=== PATIENT | female | born 2000 | race Caucasian/White ===

== ENCOUNTER → 2019-07-08 | Outpatient (CLI) | payer MEDICAID, BC ==
[2019-07-08 13:58] LABS: Basophils % (A) 0 %; Eosinophils # (A) 0.3 k/uL (0-0.7); Eosinophils % (A) 4 %; HGB 13.2 gm/dL (11.4-16.0); Lymphocytes # (A) 1.7 k/uL (1.0-4.8); Lymphocytes % (A) 18 %; MCV 87.8 fL (80.0-100.0); Mean Platelet Volume 5.9; Monocytes # (A) 0.4 k/uL (0-1.0); Monocytes % (A) 4 %; Neutrophils # (A) 6.5 k/uL (1.3-7.7); Neutrophils % (A) 71 %; Platelet Count 344 k/uL (150-450); RBC 4.55 m/uL (3.80-5.40); RDW 12.7 % (11.5-15.5); WBC 9.3 k/uL (4.0-11.0)
[2019-07-08 18:51] LABS: African American GFR (CKD) 144.6 (60.0-200.0); Albumin 4.4 g/dL (3.80-4.90); Albumin/Globulin Ratio 2.44 (1.60-3.17); Anion Gap 8.7 mmol/L (4.00-12.00); BUN/Creat Ratio 11.43 Ratio (12.00-20.00); Calcium 8.8 mg/dL (8.7-10.3); Carbon Dioxide 27.3 mmol/L (21.6-31.8); Globulin 1.8 g/dL (1.6-3.3); Potassium 3.9 mmol/L (3.5-5.5); Total Bilirubin 0.3 mg/dL (0.3-1.2); Total Protein 6.2 g/dL (6.2-8.2)
[2019-07-08 21:02] LABS: EBV-EA (IgG) <0.2 AI; EBV-EBNA(IgG) <0.2 AI; EBV-VCA (IgG) <0.2 AI; EBV-VCA (IgM) <0.2 AI
== END | disposition home or self-care (01) ==
LOC: LABWHC1 12:43
PROVIDERS: ATTEND Nurse Practitioner Family
DX: J02.9 Acute pharyngitis, unspecified (principal)
CPT/HCPCS: 36415; 80053; 85025; 86308; 86644; 86645; 86663; 86664; 86665

== ENCOUNTER → 2019-08-19 | Outpatient (CLI) | payer MEDICAID, BC ==
--- NOTE | 2019-08-21 16:13 | MR ---
EXAMINATION TYPE: MR ankle RT wo con DATE OF EXAM: 08/19/2019 COMPARISON: None. HISTORY: Rt ankle pain anteriorly and strain injury March. Standard multiplanar, multisequence MRI departmental protocol Multiplanar, multisequence images of the right ankle were acquired. FINDINGS: Distal Achilles tendon intact and thought within normal limits . Plantar fascia is unremark able. No significant calcaneal spurring. Peroneus tendons along the posterior lateral aspect are intact. Flexor tendons Posterior medial aspec t are intact. Extensor tendons anteriorly are intact. The anterior tibiofibular and the anterior talofibular ligaments are intact.. Medial deltoid ligament is intact. Ankle mortise symmetry is preserved. Normal sinus tarsi fat. Small tibiotalar joint effusion presumed physiologic. Bone marrow signal intensity is maintained. Hindfoot and midfoot articulations are thought within nor mal limits. IMPRESSION: No ligamentous or tendon tear. Fairly unremarkable study.
== END | disposition home or self-care (01) ==
LOC: RADMRIMAIN 19:28
PROVIDERS: ATTEND Orthopaedic Surgery
DX: S86.911D Strain of unspecified muscle(s) and tendon(s) at lower leg level, right leg, subsequent encounter (principal); M79.661 Pain in right lower leg; M25.571 Pain in right ankle and joints of right foot

== ENCOUNTER → 2021-11-29 | Outpatient (CLI) | payer MEDICAID, BC ==
[2021-11-29 23:50] LABS: % Iron Saturation 21.86 (12.00-45.00); African American GFR (CKD) 140.6 (60.0-200.0); Albumin 4.5 g/dL (3.8-4.9); Albumin/Globulin Ratio 1.68 (1.60-3.17); Anion Gap 12.4 mmol/L (10.00-18.00); BUN/Creat Ratio 16.81 Ratio (12.00-20.00); Basophils # (A) 0.06 X 10*3/uL (0.00-0.10); Basophils % (A) 0.8 %; Blood Urea Nitrogen 11.9 mg/dL (9.0-27.0); Calcium 9.2 mg/dL (8.7-10.3); Carbon Dioxide 20.8 mmol/L (20.0-27.5); Eosinophils # (A) 0.24 X 10*3/uL (0.04-0.35); Eosinophils % (A) 3.3 %; Globulin 2.7 g/dL (1.6-3.3); HCT 42.9 % (37.2-46.3); HGB 13.1 g/dL (12.0-15.0); Immature Grans, Automated 0.1 %; Lymphocytes # (A) 1.79 X 10*3/uL (0.90-5.00); Lymphocytes % (A) 24.6 %; MCHC 30.5 g/dL (32.0-37.0); MCV 88.3 fL (80.0-97.0); Mean Platelet Volume 10.6 fL (9.5-12.2); Monocytes # (A) 0.48 X 10*3/uL (0.20-1.00); Monocytes % (A) 6.6 %; NRBC Per 100 WBC 0 /100 WBCS (0.0-0.0); Neutrophils % (A) 64.6 %; Non-African American GFR(CKD) 121.3 (60.0-200.0); Platelet Count 341 X 10*3/uL (140-440); Potassium 3.7 mmol/L (3.5-5.5); RBC 4.86 X 10*6/uL (4.10-5.20); T4, Free (Free Thyroxine) 1.1 ng/dL (0.800-1.800); Total Bilirubin 0.3 mg/dL (0.30-1.20); Total Protein 7.2 g/dL (6.2-8.2); WBC 7.28 X 10*3/uL (4.50-10.00)
[2021-11-30 04:05] LABS: EBV-EA (IgG) <0.2 AI; EBV-EBNA(IgG) <0.2 AI; EBV-VCA (IgG) <0.2 AI; EBV-VCA (IgM) <0.2 AI
== END | disposition home or self-care (01) ==
LOC: LABWHC1 13:28
PROVIDERS: ATTEND Nurse Practitioner Family
DX: J02.9 Acute pharyngitis, unspecified (principal); D64.9 Anemia, unspecified; R73.9 Hyperglycemia, unspecified; R53.83 Other fatigue; E55.9 Vitamin D deficiency, unspecified
CPT/HCPCS: 36415; 80053; 82306; 82607; 82746; 83036; 83540; 83550; 84439; 84443; 85025; 86308; 86663; 86664; 86665

== ENCOUNTER 2022-02-12 10:54 | Emergency (ER) | payer MEDICAID, BC ==
[2022-02-12 11:00] VITALS: BP 107/67; PULSE 91; RESP 16; TEMP 98
[2022-02-12] MEDS ORDERED: KETOROLAC 15 MG/ML 1 ML VIAL IVP STA ×2 (11:11→12:37)
[2022-02-12] MEDS ORDERED: DIAZEPAM 5 MG/ML 2 ML INJ IVP STA (11:11)
--- NOTE | 2022-02-12 11:54 | XR ---
EXAMINATION TYPE: XR chest 2V DATE OF EXAM: 02/12/2022 COMPARISON: Chest x-ray December 26, 2011 HISTORY: Chest and back pain. TECHNIQUE: Frontal and lateral views of the chest are obtained. FINDINGS: There is no suspicious focal air space opacity, pleural effusion, or pneumothorax seen. T he cardiac silhouette size is upper limits of normal. The osseous structures are intact. IMPRESSION: No acute process.
[2022-02-12] MEDS ORDERED: HYDROmorphone 0.5 MG/0.5 ML SYRINGE IVP STA (12:37)
[2022-02-12] MEDS ORDERED: ONDANSETRON 4 MG/2 ML VIAL IVP STA (12:37)
[2022-02-12] MEDS ORDERED: ACET/COD 300 MG/30 MG STARTER PACK 6 TAB BTL PO STA (13:28)
--- NOTE | 2022-02-12 13:29 | ED ---
Back Pain HPI - General Chief Complaint: Back Pain/Injury Stated Complaint: back pain Time Seen by Provider: 02/12/22 11:04 Source: patient, RN notes reviewed Limitations: no limitations - History of Present Illness Initial Comments: 22-year-old female presents emergency Department chief complaint of threats back pain. Patient states started yesterday and has worsened. Patient states she does work at [employer] may have lifted something and injured her back. Patient states it's tight states that she started having she is at home no relief. Patient stated to hurt with deep compression, movement. She's got feel short of breath no chest pain no abdominal pain denies any low back pain no upper or lower extremity weakness is increased with any sort of movement. - Related Data Home Medications Medication Instructions Recorded Confirmed Montelukast [Singulair] 10 mg PO DAILY 11/06/14 02/12/22 Cholecalciferol (Vitamin D3) 75 mcg PO DAILY 02/12/22 02/12/22 [Vitamin D3 (3000 Iu)] FLUoxetine HCL 40 mg PO DAILY 02/12/22 02/12/22 Loratadine [Claritin] 10 mg PO DAILY 02/12/22 02/12/22 Previous Rx's Medication Instructions Recorded Cyclobenzaprine [Flexeril] 10 mg PO TID PRN #15 tab 02/12/22 Ibuprofen [Motrin] 600 mg PO Q8HR PRN #20 tab 02/12/22 Allergies Allergy/AdvReac Type Severity Reaction Status Date / Time clarithromycin [From Biaxin] AdvReac Nausea & Verified 02/12/22 13:25 Vomiting Review of Systems ROS Statement: Those systems with pertinent positive or pertinent negative responses have been documented in the HPI. ROS Other: All systems not noted in ROS Statement are negative. Past Medical History Past Medical History: Asthma Additional Past Medical History / Comment(s): mis alignment of bilateral knees History of Any Multi-Drug Resistant Organisms: None Reported Past Surgical History: No Surgical Hx Reported Past Psychological History: Anxiety, Depression Smoking Status: Never smoker Past Alcohol Use History: None Reported Past Drug Use History: None Reported General Exam Limitations: no limitations General appearance: alert, in no apparent distress Head exam: Present: atraumatic, normocephalic, normal inspection Eye exam: Present: normal appearance, PERRL, EOMI. Absent: scleral icterus, conjunctival injection, periorbital swelling ENT exam: Present: normal exam, mucous membranes moist Neck exam: Present: normal inspection, full ROM. Absent: tenderness, meningi smus, lymphadenopathy Respiratory exam: Present: normal lung sounds bilaterally. Absent: respiratory distress, wheezes, rales, rhonchi, stridor, chest wall tenderness Cardiovascular Exam: Present: regular rate, normal rhythm, normal heart sounds. Absent: systolic murmur, diastolic murmur, rubs, gallop, clicks GI/Abdominal exam: Present: soft, normal bowel sounds. Absent: distended, tenderness, guarding, rebound, rigid Extremities exam: Present: normal inspection, full ROM, normal capillary refill. Absent: tenderness, pedal edema, joint swelling, calf tenderness Back exam: Present: full ROM, tenderness, muscle spasm, paraspinal tenderness. Absent: CVA tenderness (R), CVA tenderness (L), vertebral tenderness Neurological exam: Present: alert, oriented X3, CN II-XII intact Course Vital Signs 02/12/22 10:57 Temperature 98 F Pulse Rate 91 Respiratory 16 Rate Blood Pressure 107/67 O2 Sat by Pulse 98 Oximetry Medical Decision Making - Medical Decision Making 22-year-old female presented for upper back pain. Patient has a thoracic most has come strain. Patient does feel improved at this time we discharged with intent parameters, muscle relaxers return parameters discussed. Disposition Clinical Impression: Spasm of thoracic back muscle Disposition: HOME SELF-CARE Condition: Stable Instructions (If sedation given, give patient instructions): Thoracic Pain (ED) Additional Instructions: Please return to the Emergency Department if symptoms worsen or any other concerns. Prescriptions: Cyclobenzaprine [Flexeril] 10 mg PO TID PRN #15 tab PRN Reason: Muscle Spasm Ibuprofen [Motrin] 600 mg PO Q8HR PRN #20 tab PRN Reason: Pain Is patient prescribed a controlled substance at d/c from ED?: No Referrals: Ernie Minaya MD [Primary Care Provider] - 1-2 days Time of Disposition: 13:28
== END 2022-02-12 14:00 | disposition home or self-care (01) ==
LOC: EC 10:54
DX: M62.830 Muscle spasm of back (principal); J45.909 Unspecified asthma, uncomplicated; F41.9 Anxiety disorder, unspecified; F32.A Depression, unspecified; Z88.1 Allergy status to other antibiotic agents
CPT/HCPCS: 71046; 99283; 96374; 96375 ×3; 96376; J3360; J2405; J1885; J1170

== ENCOUNTER → 2022-09-19 | Outpatient (CLI) | payer MEDICAID, BC ==
--- NOTE | 2022-09-20 04:24 | MR ---
EXAMINATION TYPE: MR lumbar spine wo con DATE OF EXAM: 09/19/2022 COMPARISON: None HISTORY: Low back and right leg pain Multiplanar multiecho imaging of the lumbar spine without contrast. Lumbar vertebrae have normal alignment. There is mild narrowing and decreased signal in the disks at L4-5 and L5-S1. Lumbar nerve roots appear normal. The neural foramina are fairly well maintained. The re is a minimal posterior disc bulge at L5-S1. No spinal stenosis. There is developmentally adequate spinal canal. No lumbar paraspinal mass. No compression fracture. Sacroiliac joints appear normal. IMPRESSION: Minor degenerative disc changes at L4-5 and L5-S1. Small posterior disc bulge at L5-S1. No spinal dayami nosis.
== END | disposition home or self-care (01) ==
LOC: RADMRIMAIN 19:45
PROVIDERS: ATTEND Orthopaedic Surgery Sports Medicine
DX: M51.16 Intervertebral disc disorders with radiculopathy, lumbar region (principal); M51.17 Intervertebral disc disorders with radiculopathy, lumbosacral region; M25.551 Pain in right hip
CPT/HCPCS: 72148

== ENCOUNTER → 2022-11-24 | Outpatient (CLI) | payer MEDICAID, BC ==
[2022-11-24 11:14] VITALS: BP 127/83; PULSE 98; RESP 18; TEMP 98.3
--- NOTE | 2022-11-24 14:55 | P.PAINPG ---
PQRS Measure Charge Sheet Comment: HISTORY OF PRESENT ILLNESS: 22 yr old female w mother at side as a referral from Dr Florence presents today w severe and chronic LBP secondary to L5-S1 disc bulge, spondylosis and facet arthropathy without myelopathy for evaluation. Pt states pain level is at 6 /10 in intensity, constant, localized in the lower lumbar spine where it meets the tailbone, achy in character w shooting pain towards the R hip and RLE. Pain is provoked by bending, lifting. Pain is alleviated by medications (Flexeril, Ibu), topicals, heat, PT x 3 wks which she is currently in, chiropractic treatments semi monthly which ended in Oct 2022, home exercise regimen, repositioning and rest. PMH: Asthma, MDD/ Anxiety PSH: Negative SH: Negative x3. Works as a Ticket Attendant. FH: Negative All: See list Meds: See list REVIEW OF ORGAN SYSTEMS: CONSTITUTIONAL: No fevers or chills. No recent weight lo ss. NEUROLOGICAL: + numbness and tingling along the distal extremities. No seizure disorders or headaches. MUSCULOSKELETAL: + pain PSYCHIATRIC: Denies current depression or suicidal thoughts. Physical Examinations : Constitutional : Cooperative , not in acute distress . Neurologic : Cranial nerve II to XII intact. No focal neurological deficits. Psychiatric : alert & oriented x 3. Matching mood & appropriate affect. Judgment & insight intact. Musculoskeletal : Cervical Spine Motor strength in the deltoid and biceps: Normal right side. Normal Left side Motor strength biceps and the wrist e xtensors: Normal right side . Normal left side Motor strength in the triceps muscle: Normal right side. Normal left side Deep tendon reflexes: Normal at the biceps. Normal at Brachioradialis. Normal at triceps Vertebral body tenderness to deep palpation over Cervical facet loading test: positive bilaterally Spurling test: positive bilaterally Neck distraction test: positive bilaterally Donna sign: positive bilaterally Lumbar spine Motor strength lower extremities ,thigh and legs 5/5 Right side , 5/5 Left side Deep tendon reflexes : Normal Knee Jerk. Normal Ankle Jerk Vertebral body tenderness over L5 Lumbar facet Loading Test: positive Right / positive Left Range of motion of the lumbar spine Flexion 30 degrees, extension 10 degrees Straight Leg Raise test: Left/ Right positive at degree Layo test: positive right / positive left. Severe tenderness over the Sacroiliac joint on the Right / Left sides Gaenslen test: positive bilaterally Seated flexion test: positive bilaterally. Sacral spine : Severe tenderness over the Sacroiliac joint: right side / left side Range of motion: Flexion of the lumbar spine <60 degrees Range of motion: Extension of the lumbar spine <20 degrees Gaenslen's Test positive Jairo's Test positive Layo test: positive right side / left side Thigh Thrust Test Sacral Thrust Test Imaging: MRI without contrast of the lumbar spine from 09/19/22 reviewed Assessment/ Plan : L5-S1 posterior disc bulge Recommendation of OC L5-S1. May need a series of injections for optimal pain relief. Risks, benefits of procedure discussed and patient verbalized understanding. Admits to aspirin or anti- coagulant use or medical history of diabetes. Protocol for discontinuation/ continuation of medications trista procedure discussed. All questions answered. I have spent greater than 30 minutes on patient care today. Dr Cedeno was available by phone for the evaluation of this patient. The time was used to review the medical records including relevant urine studies and Prescription history (MAPs), review of the available imaging, evaluation and examination of the patient, coordination of care with the medical staff and if applicable referring physicians, as well as creation of the medical record PQRS Narrative: Smoking Status Never smoker Home Medications: Ambulatory Orders Montelukast [Singulair] 10 mg PO DAILY 11/06/14 Cholecalciferol (Vitamin D3) [Vitamin D3 (3000 Iu)] 75 mcg PO DAILY 02/12/22 Cyclobenzaprine [Flexeril] 10 mg PO TID PRN #15 tab 02/12/22 FLUoxetine HCL 40 mg PO DAILY 02/12/22 Ibuprofen [Motrin] 600 mg PO Q8HR PRN #20 tab 02/12/22 Loratadine [Claritin] 10 mg PO DAILY 02/12/22 Controlled Substance Measures - Controlled Substance Measures Is patient prescribed a controlled substance at discharge?: No
== END ==
LOC: PNWHC3 09:59
PROVIDERS: ATTEND Specialist
DX: M47.816 Spondylosis without myelopathy or radiculopathy, lumbar region (principal); G89.29 Other chronic pain; J45.909 Unspecified asthma, uncomplicated; F41.9 Anxiety disorder, unspecified; Z88.1 Allergy status to other antibiotic agents
CPT/HCPCS: 99211

== ENCOUNTER 2022-11-27 12:14 | Day surgery (SDC) | payer MEDICAID, BC ==
[2022-11-27] MEDS ORDERED: LACTATED RINGERS 1,000 ML IV SCH (13:11)
[2022-11-27] MEDS ORDERED: LIDOCAINE 1% (10MG/ML) FOR IV START INTRADERMA PRN (13:11)
[2022-11-27 13:25] VITALS: TEMP 97.5
[2022-11-27] MEDS ORDERED: fentaNYL (PF) 50 MCG/ML 2 ML AMP ONE (13:42)
[2022-11-27] MEDS ORDERED: MIDAZOLAM 2 MG/2 ML VIAL ONE (13:42)
[2022-11-27] MEDS ORDERED: methylPREDNISolone ACETATE 80 MG/ML 1 ML VIAL ONE (13:42)
[2022-11-27] MEDS ORDERED: IOPAMIDOL M200 10 ML VIAL ONE (13:42)
[2022-11-27] MEDS ORDERED: IV FLUID CONTINUATION 1,000 ML IV ONE (13:54)
--- NOTE | 2022-11-27 13:54 | P.PCN ---
Date of Procedure: 11/27/22 Procedure(s) Performed: PREOPERATIVE DIAGNOSIS: 1- Lumbar herniated Disc Diseases 2-Lumbar Radiculopathy. POSTOPERATIVE DIAGNOSIS: 1-lumbar herniated disc disease. 2-lumbar radiculopathy PROCEDURE 1. Lumbar epidural steroid injection under fluoroscopic guidance at the L5-S1 l evel. (Fluoroscopy imaging was available in radiology department) 2. Lumbar epidurogram. ANESTHESIA: moderate sedation with intravenous Versed 2 mg ,and fentanyle 100 Mcg Sedation start time : 1347 Sedation end time : 1351 EBL: Minimal PROCEDURE INDICATION: The patient with low back pain and radiculitis symptoms unresponsive to conservative treatment. Fluoroscopy was used to optimize visualization of the needle placement and to maximize safety. PROCEDURE DESCRIPTION / TECHNIQUE: The patient was seen and identified in the preoperative area. Risks, benefits, complications including but not limited to infections ,bleeding ,allergic reaction to the medications ,nerve damage and not complete pain releife , and alternatives were discussed with the patient. The patient agreed to proceed with the procedure and signed the consent. IV was started, and vital signs were stable. Patient was taken to the OR and time out was completed. The patient was placed in the prone position on procedure table and a pillow was placed under the abdomen to reduce lumbar lordosis. The lumbosacral area was prepped and draped in the usual sterile fashion.ere closely monitored during the procedure. Conscious sedation was used during the procedure to decrease patients anxiety. Vital signs was monitered during the entire procedure. Using anterior-posterior fluoroscopy, the L5-S1 interlaminar space was identified and the skin over this site was marked and then infiltrated with 1% lidocaine subcutaneously. Subsequently, a 20-gauge Tuohy epidural needle was inserted and advanced toward the epidural space using the ``Loss of resistance technique and guided by AP and lateral fluoroscopy. The correct needle position in the epidural space was verified with the injection of 2 mL of the water soluble contrast dye Isovue 200 contrast and observing an excellent epidurogram with the epidural spread of the dye, after negative aspiration for blood and CSF and in the absence of paresthesias. Again after negative aspiration, a 6 ml mixture containing 80 mg of Depo-medrol ( Preservetive Free ), and 2 ml of preservative free Normal Saline, and 2 ml of preservative free lidocaine 1% solution was injected and a washout of epidurogram was seen. Needle was withdrawn intact, skin was cleansed, and bandages were applied. COMPLICATIONS: None DISPOSITION / PLANS: The patient was placed in a supine position and transferred to the recovery area in a stable condition for observation. There was no evidence of lower extremity motor or sensory deficit after the procedure. Patient was discharged from the recovery room after meeting discharge criteria. Home discharge instructions were given to the patient by the staff. The patient was reexamined prior to discharge. The patient will schedule a follow up in the clinic in 2-4 weeks.
[2022-11-27 13:57] VITALS: RESP 16
--- NOTE | 2022-11-27 14:00 | FL ---
Intraoperative/procedural fluoroscopic services were provided. Total fluoroscopy time is 1.6 seconds with a total of 2 submitted images to PACS. Please see the operative/procedural note for further deta ils. DAP: 0.85924
[2022-11-27 14:10] VITALS: BP 99/69; PULSE 68
== END 2022-11-27 14:34 | disposition home or self-care (01) ==
LOC: ORPAIN 12:14
PROVIDERS: ATTEND Specialist
DX: M51.16 Intervertebral disc disorders with radiculopathy, lumbar region (principal); M47.26 Other spondylosis with radiculopathy, lumbar region; Z88.8 Allergy status to other drugs, medicaments and biological substances
CPT/HCPCS: 81025; 62323; J2250; J1040; J3010; Q9966

== ENCOUNTER → 2022-12-18 | Outpatient (CLI) | payer MEDICAID, BC ==
[2022-12-18 07:58] VITALS: BP 115/74; PULSE 79; RESP 18; TEMP 98.6
--- NOTE | 2022-12-18 14:27 | P.PAINPG ---
PQRS Measure Charge Sheet Comment: A 22 yr old female w mother at side with a history of severe and chronic LBP secondary to lumbar DDD and spondylosis with facet arthropathy without myelopathy presents today for evaluation s/p OC L5-S1. Pt states she experienced 50% pain relief x 2-3 days s/p procedure. Pain level is provoked at 7 /10 in intensity, constant, localized in the R lower lumbar spine, dull/ achy in character w shooting towards the R feet. Pain is provoked by lifting, bending, twisting. 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 Pain is alleviated with PT x 4 wks which ended in Nov 2022, chiropractic treatments 3 times monthly since Mar 2022, heat, meds, topical, repositioning and rest. Interventional pain procedures completed include OC L5-S1 x1 Patient is currently on Neurontin, Tyl, Ibu Patient denies any side effects of the medication(s), denies excessive drowsiness or sleepiness, denies suicidal ideation and reports that the current pain medication is helping to control the pain and improve activities of daily living. Patient denies any motor or sensory deficits. Patient denies any fever or night sweats, denies any change in the bowel movements or urination. Physical Examination: -Constitutional: Cooperative. Not in acute distress . - Neurologic: Cranial nerve II to XII intact. No focal neurological deficits. - Psychatric: Alert & oriented x 3. Matching mood & appropriate affect. Judgment and insight intact. - Musculoskeletal: Cervical spine: Muscle bulk/ tone/ strength in the bilateral upper extremities normal Vertebral body tenderness to palpation over Spurling test positive Distraction test positive Facet loading test positive TTP Thoracic spine Muscle bulk / tone/ strength in the bilateral paraspinal muscles normal Vertebral body tender to palpation over Facet loading test positive TTP Lumbar spine: Motor bulk/ tone/ strength lower extremities , thigh and legs : 5/5 Deep tendon reflexes : Normal Knee Jerk. Normal Ankle Jerk . Vertebral body tenderness to palpation over L5 Lumbar Facet Loading Test positive Straight Leg Raise: positive at 30 degrees right side/ left side Gaenslen's Test positive Sacral spine : Severe tenderness over the Sacroiliac joint: right side / left side Range of motion: Flexion of the lumbar spine <60 degrees Range of motion: Extension of the lumbar spine <20 degrees Gaenslen's Test positive right side / left side Layo test: positive right side / left side Thigh Thrust Test positive right side / left side Sacral Thrust Test positive right side / left side Assessment and plan: Chronic LBP secondary to lumbar DDD, spondylosis with facet arthropathy without myelopathy Recommendation of R TFESI L5-S1. May need a series of injections for optimal pain relief. Risks, benefits of procedure discussed and pt verbalized understanding. Admits to anticoagulant use or medical history of diabetes. Protocol for discontinuation/ continuation of medications trista procedure discussed. All questions answered. I have spent less than 30 minutes on patient care today. Dr Cedeno was available by phone for the evaluation of this patient. The time was used to review the medical records including relevant urine studies and Prescription history (MAPs), review of the available imaging, evaluation and examination of the patient, coordination of care with the medical staff and if applicable referring physicians, as well as creation of the medical record PQRS Narrative: Smoking Status Never smoker Hx Alcohol Use (MH) No Home Medications: Ambulatory Orders Montelukast [Singulair] 10 mg PO DAILY 11/06/14 Cyclobenzaprine [Flexeril] 10 mg PO TID PRN #15 tab 02/12/22 FLUoxetine HCL 40 mg PO DAILY 02/12/22 Loratadine [Claritin] 10 mg PO DAILY 02/12/22 Controlled Substance Measures - Controlled Substance Measures Is patient prescribed a controlled substance at discharge?: No
== END ==
LOC: PNWHC3 07:12
PROVIDERS: ATTEND Specialist
DX: M51.36 Other intervertebral disc degeneration, lumbar region (principal); M47.817 Spondylosis without myelopathy or radiculopathy, lumbosacral region; G89.29 Other chronic pain; Z88.1 Allergy status to other antibiotic agents
CPT/HCPCS: 99211

== ENCOUNTER 2023-01-15 07:06 | Day surgery (SDC) | payer MEDICAID, BC ==
[2023-01-15 07:49] VITALS: TEMP 98.2
[2023-01-15] MEDS ORDERED: LACTATED RINGERS 1,000 ML IV ONE (07:55)
[2023-01-15] MEDS ORDERED: LIDOCAINE 1% (10MG/ML) FOR IV START INTRADERMA PRN (08:23)
[2023-01-15] MEDS ORDERED: ONDANSETRON 4 MG/2 ML VIAL ONE (08:25)
[2023-01-15] MEDS ORDERED: MIDAZOLAM 2 MG/2 ML VIAL ONE (08:32)
[2023-01-15] MEDS ORDERED: methylPREDNISolone ACETATE 80 MG/ML 1 ML VIAL ONE (08:32)
[2023-01-15] MEDS ORDERED: IOPAMIDOL M200 10 ML VIAL ONE (08:32)
[2023-01-15] MEDS ORDERED: fentaNYL (PF) 50 MCG/ML 2 ML AMP ONE (08:32)
[2023-01-15] MEDS: LACTATED RINGERS 1,000 ML IV SCH ×2 (08:46→09:15)
--- NOTE | 2023-01-15 08:46 | P.PCN ---
Date of Procedure: 01/15/23 Procedure(s) Performed: PREOPERATIVE DIAGNOSIS: 1-Lumbar radiculopathy . 2-lumbar herniated disc disease. POSTOPERATIVE DIAGNOSIS: 1-lumbar radiculopathy. 2-lumbar herniated disc disease. PROCEDURE 1. Transforaminal epidural steroid injection under fluoroscopic guidance at right L5-S1 level. (Fluoroscopy images stored on file in the radiology Department ) 2. Lumbar epidurogram . ANESTHESIA: Local with 1% lidocaine 3 ml , moderate sedation with intravenous Versed 2 mg and fentanyle 100 micrograms. Sedation start time :08 . Sedation. stop time : 841 . EBL: Minimal PROCEDURE INDICATION: The patient with low back pain and radiculopathy symptoms unresponsive to conservative treatment. PROCEDURE DESCRIPTION / TECHNIQUE: The patient was seen and identified in the preoperative area. Risks, benefits, complications, and alternatives were discussed with the patient. The patient agreed to proceed with the procedure and signed the consent. IV was started, and vital signs were stable. Patient was taken to the OR and time out was completed. The patient was placed in the prone position on procedure table and a pillow was placed under the abdomen to reduce lumbar lordosis. The lumbosacral area was prepped and draped in the usual sterile fashion. Critical pause was taken. Vital signs were closely monitored during the procedure. Conscious sedation was used during the procedure to decrease patient s anxiety. Using oblique fluoroscopy, the chin of the `Andrey dog at Right L5-S1 level was identified, and the skin and deeper tissues just below was localized with 1% lidocaine. Subsequently, a 22-gauge 3.5-inch spinal needle was advanced under a tunneled view fluoroscopic guidance just underneath the chin of the `Andrey dog at the right L5-S1 Under lateral fluoroscopy, the needle was then advanced to the posterior border of the interforaminal space. After negative aspiration of CSF and blood and with no paresthesias, 1 mL Isovue 200 contrast dye was i njected excellent epidurogram and outlining of the nerve root Subsequently, 3 mL of block solution containing 80 mg Depo-Medrol and 2 mL of 0.9% normal saline PF was injected. Needle was removed . At the end of the procedure, skin was cleansed, and bandages were applied. COMPLICATIONS:none DISPOSITION / PLANS: The patient was placed in a supine position and transferred to the recovery area in a stable condition for observation. There was no evidence of lower extremity motor or sensory deficit after the procedure. Patient was discharged from the recovery room after meeting discharge criteria. Home discharge instructions were given to the patient by the staff. The patient was reexamined prior to discharge.
[2023-01-15 09:07] VITALS: BP 108/71; PULSE 85; RESP 18
--- NOTE | 2023-01-15 10:51 | FL ---
EXAMINATION TYPE: FL guided pain mgmt statistic DATE OF EXAM: 01/15/2023 HISTORY: Fluoroscopy time Total dose area product (DAP) in mGy*m? (or similar): 0.77434 IMPRESSION: 1. Fluoroscopy time.
== END 2023-01-15 09:30 | disposition home or self-care (01) ==
LOC: ORPAIN 07:06
PROVIDERS: ATTEND Specialist
DX: M51.16 Intervertebral disc disorders with radiculopathy, lumbar region (principal); Z88.8 Allergy status to other drugs, medicaments and biological substances
CPT/HCPCS: 81025; 64483; 99152; J2250; J1040; J2405; J3010; Q9966

== ENCOUNTER → 2023-02-12 | Outpatient (CLI) | payer MEDICAID, BC | END | disposition home or self-care (01) | LOC: LABT 12:11 | PROVIDERS: ATTEND Orthopaedic Surgery | DX: Z53.9 Procedure and treatment not carried out, unspecified reason (principal) ==

== ENCOUNTER → 2023-02-12 | Outpatient (CLI) | payer MEDICAID, BC ==
[2023-02-12 11:03] LABS: Basophils # (A) 0.06 X 10*3/uL (0.00-0.10); Basophils % (A) 1.2 %; Eosinophils # (A) 0.31 X 10*3/uL (0.04-0.35); HCT 40.5 % (37.2-46.3); HGB 12.7 d/dL (12.0-15.0); Lymphocytes # (A) 1.69 X 10*3/uL (0.90-5.00); Lymphocytes % (A) 32.6 %; MCH 27.5 pg (27.0-32.0); MCHC 31.4 d/dL (32.0-37.0); MCV 87.7 FL (80.0-97.0); Mean Platelet Volume 10.5 FL (9.5-12.2); Monocytes # (A) 0.71 X 10*3/uL (0.20-1.00); Monocytes % (A) 13.7 %; NRBC Per 100 WBC 0 X 10*3/uL (0.00-0.01); Neutrophils # (A) 2.41 X 10*3/uL (1.80-7.70); Neutrophils % (A) 46.3 %; Platelet Count 284 X 10*3/uL (140-440); RBC 4.62 X 10*6/uL (4.10-5.20); RDW 12.9 % (11.5-14.5); WBC 5.19 X 10*3/uL (4.50-10.00)
[2023-02-12 11:53] LABS: ALT 22 U/L (8-44); AST 19 U/L (13-35); Albumin 4.2 d/dL (3.8-4.9); Albumin/Globulin Ratio 1.83 Ratio (1.60-3.17); Alkaline Phosphatase 59 U/L (41-126); BUN/Creat Ratio 19.43 Ratio (12.00-20.00); Blood Urea Nitrogen 13.6 mg/dL (9.0-27.0); Calcium 9.1 mg/dL (8.7-10.3); Carbon Dioxide 23.7 mmol/L (21.6-31.8); Chloride 107 mmol/L (96-109); Chol/HDL Ratio 3.18 Ratio; Globulin 2.3 d/dL (1.6-3.3); Glucose 93 mg/dL (70-110); LDL Cholesterol,Calculated 110.9 mg/dL (0.0-131.0); Potassium 4.1 mmol/L (3.5-5.5); Sodium 141 mmol/L (135-145); T4, Free (Free Thyroxine) 1.22 ng/dL (0.80-1.80); Total Bilirubin 0.3 mg/dL (0.3-1.2); Total Protein 6.5 d/dL (6.2-8.2); VLDL Calculation 15.26 mg/dL (5.00-40.00)
[2023-02-12 12:52] LABS: INR <0.93 sec (0.93-1.11)
== END | disposition home or self-care (01) ==
LOC: LABWHC1 07:09
PROVIDERS: ATTEND Physician Assistant
DX: Z01.812 Encounter for preprocedural laboratory examination (principal); Z13.220 Encounter for screening for lipoid disorders; E55.9 Vitamin D deficiency, unspecified; D64.9 Anemia, unspecified; R73.9 Hyperglycemia, unspecified; R94.6 Abnormal results of thyroid function studies
CPT/HCPCS: 36415; 80053; 80061; 82306; 83036; 84439; 84443; 85025; 85610; 87070

== ENCOUNTER 2023-02-17 06:07 | Day surgery (SDC) | payer MEDICAID, BC ==
[~2023-02-17 06:07] MED LIST: ACETAMINOPHEN TAB 500 MG TAB PO PRN; DEXAMETHASONE SOD PHOSPHATE 4 MG/ML 1 ML VIAL IV ONE; GABAPENTIN 300 MG CAP PO PRN; ONDANSETRON 4 MG/2 ML VIAL IVP ONE; ONDANSETRON 4 MG/2 ML VIAL IVP PRN; TRANEXAMIC 1,000 MG/100ML-NACL 1,000 MG in SALINE 1 100ML.BAG IVPB PRN
--- NOTE | 2023-02-17 06:26 | P.HPOR ---
History of Present Illness H&P Date: 02/12/23 .D:Date: 02/12/23 : 04:30pm .T:Title: *[facility] Date of :[birth year] R14 Allergies: Age: 22 year Height: 5'6" Weight: 182 lbs BMI: 29.38 kg/m2 Occupation: Teacher VAS: 4 CHIEF COMPLAINT: Recheck of L5-S1 HISTORY : Xrays No new xrays taken in office, previous images reviewed XR, MRI L spine Trauma or injury No Work-Related No Pain description dull, aching, burning, sharp, throbbing , increasing . Location diffuse Patient notes that their pain radiates to right lower extremity Activity Modification yes Hand Dominance right TREATMENTS COMPLETED: 6 weeks of PT completed? Month and Year of last PT date? YES previously. Physician recommended home exercise completed? Duration of HEP course: Patient has trialed the physician directed home exercise program forwithout relief of their symptoms. Medications yes List:Medrol dosepak, Tylenol and biofreeze Alternative interventions Chiropractic: yes Massage therapy: yes R.I.C.E: yes Brace: No Injections No RFA: No SUBJECTIVE: Ms. Nguyen presents today for pre op evaluation of her L5-S1 HNP. Since last visit she has been fairly miserable with her leg pain and back pain as well as buttock pain on the right. She has finished out the school year but she states things seem to have gotten worse and she is ready for surgery. She denies any bowel or bladder issues. States no perineal numbness tingling. She states tinging and numbness in the S1 distribution of her right leg as well as right l eg pain that travels to her toes. She states weakness with push off of her toes on the right. Denies any f/c/sob/cp. She states she is ready for surgery. HISTORY: 12/15/22: Today Ms. Nguyen presents to the office for a recheck of her L5-S1 lower back pain. Patient states lower back pain ongoing for several years. The patient notes low back pain across the buttock area that radiates down her right leg. She notes a throbbing/stabbing pain increased with prolonged standing, sitting and walking. Since the last visit the patient has had an increase in tingling in the feet and an overall increase in pain. The patient has trialed medrol dosepak, tylenol and biofreeze without resolution of her symptoms. Patient has also trialed lumbar physical therapy without relief. Patient also recieved L5-S1 epidural steroid injections from [facility] which took her pain down from a 7 to a 3 for about 3 days. Patient ambulates independently. denies any f/c/sob/cp, no incision concerns, no bladder or bowel retention/incontinence, no perineal numbness/tingling, and ambulates independently. Ms. Nguyen presented to the office on 10/22/22 for low back pain for several years. The patient notes low back pain across the buttock area that radiates down his right leg. She notes a throbbing/stabbing pain increased with prolonged standing, sitting and walking. The patient has trialed tylenol and biofreeze without resolution of her symptoms. Patient ambulates independently. denies any f/c/sob/cp, no incision concerns, no bladder or bowel retention/incontinence, no perineal numbness/tingling, and ambulates independently. The patients' past social, medical, family, surgical history, as well as review of systems, have been reviewed. Please refer to the Neurosurgery History and Physical form that has been scanned in to our electronic medical record system. 16 points review of systems completed and as stated in HPI, all other systems reviewed are negative. Social History: Reviewed, see appropriate section of the chart for details. P3 Smoking: never a smoker P3 Alcohol: occasional alcohol P3 P2 Family History: Mother: alive & well. P2 Father: alive & well. P2 Sibling(s): alive & well. P2 Family History: breast cancer kidney cancer . P2 P2 Past Medical History: Reviewed, see appropriate section of the chart for details. P1 Current Medications: Rx: FLUoxetine 40 mg capsule Ref: 0 Instructions: take 1 capsule (40 mg) by oral route once daily in the morning Rx: loratadine Ref: 0 Rx: montelukast 10 mg tablet Ref: 0 Instructions: take 1 tablet (10 mg) by oral route once daily in the evening Rx: TylenoL Ref: 0 Rx: methylPREDNISolone 4 mg tablets in a dose pack Ref: 0 Instructions: take by oral route as directed per package instructions P1 PHYSICALEXAMINATION: General: Awake, alert, appropriate for age, in no acute distress. HEENT: No unusual neck masses around region of lateral neck triangle, thyroid, supraclavicular groove Heart: Regular rate and rhythm, normal S1, S2 and no murmur/gallop. Lungs: Clear to auscultation bilaterally with no use of accessory muscles. Extremities: Skin warm and dry without acute lesions, coloration, temperature, skin intact, no tenderness or erythema Integument: Hairy patches: ABSENT Dorsal skin dimples: ABSENT Cafe au lait spots: ABSENT Palpation: Please see Pain drawing on Intake sheet for further detail. Midline spinal tenderness: No E6 Cervical Tenderness: No E6 Paralumbar tenderness: Yes E6 Parathoracic tenderness: No E6 Buttocks tenderness: No E6 POSTURAL and MUSCULO-SKELETAL EVALUATION: Coronal Balance: NEUTRAL Recumbent testing: Patient is able to lay flat on back Sagittal Balance: NEUTRAL Shoulder Profile: LEVEL Pelvic Girdle: LEVEL Neck ROM: UNRESTRICTED Lumbar ROM: RESTRICTED Shoulder ROM: Symmetrical Hip ROM: Symmetrical Knee ROM: Symmetrical Hands: Normal appearance, symmetrical Feet: Normal appearance, Symmetrical VASCULAR STATUS : LEFT RIGHT Wrist Pulses INTACT INTACT Pedal Pulses (Dors. pedis & post.tibialis) INTACT INTACT Color NORMAL NORMAL Edema Absent Absent NEUROLOGIC EXAMINATION: Mental Status:Awake and alert, fully oriented, with normal attention, concentration and memory, and fluent, appropriate speech. Cranial Nerves: I: Olfactory not tested. II: Visual acuity normal, no visual field deficit noted with confrontation. III,IV: Normal pupillary reflexes & intact extraocular movements without nystagmus. V,: Intact symmetrical facial sensation. VII: Intact symmetrical facial motor movement VIII: Hearing intact. IX,X: Intact gag, swallow, & normal voice. XI: Sternocleidomastoid, trapezius function intact. XII: Tongue midline with normal movements. L'hermitte's Sign: Negative / absent Spurling'Sign: Absent bilaterally. Cubital percussion test: Absent bilaterally. Lux-Tinel sign - Carpal region: Absent bilaterally. Straight Leg Raising: Positive right side Crossed straight leg raise: positive O8 MOTOR EXAM (0-5/5, N/T Muscle appearance: Symmetrical, without signs of atrophy or dystrophy UPPER EXTREMITY RIGHT LEFT Shoulder Abduction 5/5 5/5 Biceps 5/5 5/5 Triceps 5/5 5/5 Wrist Extension 5/5 5/5 Hand Intrnsics 5/5 5/5 Debeader 5/5 5/5 Hand and finger dexterity intact bilaterally? yes Disdiadochokinesis examination negative bilaterally? yes LOWER EXTREMITY RIGHT LEFT Hip Flexion 4/5 4/5 Knee Extension 4/5 4/5 Knee Flexion 4/5 4/5 Dorsiflexion 4/5 4/5 Plantarflexion 4/5 4/5 EHL 4/5 4/5 FHL 4/5 4/5 Toe heel walk / heel-toe walk intact while maintaining satisfactory balance? yes Squatting/straightening w/o assistance to a min of 60 degree knee flexion? yes REFLEXES(0-4/2, NT)Upper ExtremityLower Extremity Right 2 2 Left 2 2 Pathological Reflexes RIGHT LEFT Lux's Absent Absent Clonus Absent Absent Babinski Absent Absent Sensory system (0-4, N/T) Test type RU REDD RL LL Joint-Position 2 2 2 2 Vibration 2 2 2 2 Pain & LT sense 2 2 2 2 Dermatomal Deficit: None None 5-1 5-1 Gait and Functional Evaluation: Ambulatory aids: Independent Romberg's test: Intact bilaterally Steady Gait RADIOGRAPHIC STUDIES: XRay taken on 10/22/22 of Lumbar Spine and pelvis at [facility] : Multiple Views of the lumbar spine obtained and reviewed and demonstrate normal sagittal as well as coronal alignment. Disc heights and vertebral body heights are maintained. There is no fracture or dislocation noted. No listhesis noted. AP pelvis demonstrates congruent level pelvis no fracture or dislocation MRI scan from 09/19/2022of Lumbar Spine: taken at [facility]: this is reviewed and demonstrates disc herniation at L5-S1 on the right-hand side with right S1 nerve root encroachment. There is moderate to severe foraminal stenosis related to this. There is no encroachment on the L5 nerve root. There are degenerative changes associated with this as well. At L4 5 there is disc desiccation noted with an annular tear but no large disc herniation or stenosing lesion. Overall alignment is maintained No fracture lesions noted IMPRESSION: It was my pleasure to have seen and examined Renea. I reviewed the patient's clinical syndrome, physical findings, and imaging studies during the appointment today. It is my impression that the patient has a diagnosis of. 1. L5-S1 HNP 2. Right lower extremity radiculopathy I outlined the natural course history without intervention and various interventional options. PLAN: All options were reviewed today, we decided the best course of action would be: -Cont with previous Rx as needed. -Advised patient to continue with supplements, health maintenance, and home exercise programs. Patient expressed understanding and will continue with these modalities. I discussed treatment options with the patient, including operative and non- operative options, and they have elected to proceed with the following surgical procedure: Lumbar L5-S1 Right Microdiscectomy The indications, risks, benefits, and alternatives to surgery were discussed with the patient and family at length. Specifically (but not limited to) the risks of infection, stiffness, recurrence of symptoms, need for revision surgery, local numbness, neurovascular injury, and blood clots were discussed. The patient's questions were answered. The decision to proceed was made. Consent will be obtained for the procedure. -Ambulate daily -Take pain medications and post op medications as needed and as directed -Ice and rest for pain and swelling control. Spine Surgery Risk Review Ms. Nguyen is presenting for evaluation of low back pain. It was my pleasure to have seen and examined Ms. Nguyen. Patient states lower back pain ongoing for several years. The patient notes low back pain across the buttock area that radiates down her right leg. She notes a throbbing/stabbing pain increased with prolonged standing, sitting and walking. Since the last visit the patient has had an increase in tingling in the feet and an overall increase in pain. In our visit today we have had a chance to go over subjective complaints, physi giovany examination findings and treatments including the natural course history without intervention and various interventional options. The patients imaging demonstrates: XRay taken on 10/22/22 of Lumbar Spine and pelvis at [facility] : Multiple Views of the lumbar spine obtained and reviewed and demonstrate normal sagittal as well as coronal alignment. Disc heights and vertebral body heights are maintained. There is no fracture or dislocation noted. No listhesis noted. AP pelvis demonstrates congruent level pelvis no fracture or dislocation MRI scan from 09/19/2022of Lumbar Spine: taken at [facility]: this is reviewed and demonstrates disc herniation at L5-S1 on the right-hand side with right S1 nerve root encroachment. There is moderate to severe foraminal stenosis related to this. There is no encroachment on the L5 nerve root. There are degenerative changes associated with this as well. At L4 5 there is disc desiccation noted with an annular tear but no large disc herniation or stenosing lesion. Overall alignment is maintained No fracture lesions noted On physical exam, Ms. Nguyen demonstrates: :LE radiculopathy R/L. LE weakness. Pain with motion, SLR positive and contralateral SLR positive. NO bowel bladder sx. I have explained to the patient that as their condition progresses it will cause further neurological deficits and eventual paralysis. Based on the patients imaging, physical exam, and the rapid progression and disabling nature of their symptoms, at this time I recommend surgery in the form of a:Lumbar L5-S1 Right Microdiscectomy. I discussed the risk and benefits of this procedure at length with Ms. Nguyen. The patient and mother agreed to considered pursuing the procedure abovementioned. Prior to surgery, she should follow up with her PCP (Cardio, ID, IM etc) for clearance. Questions were invited and answered, and the patient wishes to proceed as outlined below. Currently, I am recommendin.Lumbar L5-S1 Right Microdiscectomy 2.Follow up with PCP for surgical clearance 3.Review of surgical risks and benefits as well as an educational packet on the proposed surgical procedure. Risks: All surgical procedures come with inherent risks, including those related to positioning, anesthesia, intraoperative findings, and postoperative complications. It is important to understand that surgery does not come with any guarantee of a successful outcome as complications and adverse events are always possible. The patient was given a handout in office today discussing the surgical procedure and risks associated with the intervention, both of which were discussed with the patient. These risks include but are not limited to the following: * Experiencing same, different or even worse symptoms in back, neck, arms, or legs compared to before surgery. Requiring further surgery or other forms of treatment presently or at some time in the future at same or other levels of the intended spine surgery. On an extreme but fortunately relatively rare basis severe complication such as blindness, stroke, heart attack, temporary and/or permanent nerve injury, paralysis, coma, or may occur, sometimes without known explanation. Surgical complications may include but are not limited to risk of infection, fluid accumulation in the surgical dissection site, including a seroma or hematoma, that requires additional surgery, wound drainage, bleeding, new numbness or weakness, vision changes/loss, spinal fluid leakage, non-healing and/or infected incision, headaches, difficulty or inability to swallow, hoarseness, hemopneumothorax, pneumothorax, impotence, retrograde ejaculation, vaginal dryness; injury to nerves, spinal cord, blood vessels, lymphatics or other vital organs (i.e., bowel injury, injury to the great vessels); heterotopic bone formation; complications related to the hardware such as screws, rods, cages including misplaced hardware, device failure, instrumentation at the wrong spine level, hardware fracture/breakage, or hardwar e loosening; vertebral failure of the spinal column above or below the newly placed hardware; retained surgical instrumentations or devices and the need for further surgery. * Medical risks of the planned spine surgery include but are not limited to generalized Infections to the whole body or local areas outside of the surgical site (sepsis), heart attack, bleeding, anaphylaxis, meningitis, seizure, epilepsy, hearing loss, burn martinez, laceration of the head or other areas of the body, bruising, hypersensitivity of the skin, bladder over distension; allergic reaction; shoulder injury related to positioning; fat, blood and air clots to other areas of the body like heart, lungs, brain; failure of internal organs such as lungs, kidneys, liver and excessive bleeding. If blood transfusions are necessary, note that transfusions may cause intolerance reactions such as anaphylaxis or other complex reactions. Despite best efforts, the results of spine surgery might not heal in terms of bone, soft tissues such as skin, fascia, ligaments, and joints. Additionally, in order to achieve best possible results, spine surgery may be carried out beyond the initially planned levels and involve decompression, fusion including insertion of hardware at levels other than the original intended area of surgical interest change some portions of the procedure in order to ensure the best possible outcomes. With spine surgery and spinal fusion, there are different off label uses of instrumentation (devices, implants and hardware) as well as biological substances (bone morphogenic proteins, demineralized bone matrix) as well as using extra bone from allograft sources (i.e. cadaver bone) or autograft (iliac crest bone, ribs, or the spine itself). The patient has been given information about these practices and their inherent risks and benefits. [facility] is an educational center that serves as a training facility for neurosurgical and orthopedic [employer] and Nursing students. Physician assistants are medically trained surgical providers who function in the outpatient, inpatient, and operating room setting under the direct supervision of the attending surgeon. [facility] has multiple operating rooms with single and overlapping rooms running daily. They currently function under the required guidelines as produced by the [facility] with regards to the overlapping rooms and will continue to comply with changes to this policy as they occur. The requirements include and are complied with as follows: (1) the critical portions of the overlapping rooms will not occur at the same time, (2) the attending physician will be physically present during the critical portions of the procedure and immediately available during the entire case, and (3) a back-up attending is designated should the primary attending not be immediately available. The patient has had a chance to review all the listed information, has been given print outs detailing this information, and has had all his/her questions answered to their satisfaction. It was my pleasure to have seen and examined Ms. Nguyen. In our visit today we have had a chance to go over my understanding of our patient's current condition, the natural course history without intervention and various interventional options. Questions were invited and answered, and the patient wishes to proceed as outlined above. I have seen and examined the patient for 25 minutes and we have spent more than 50% of the time in repeat and detailed counseling about the patient's condition, its natural course history with out and as much as can be predicted with surgery and re-review of various surgical treatment options. In conclusion, Ms. Nguyen and mother requested we proceed with the above suggested surgery and are willing to accept risks and limitations of the suggested surgery as nature of the disease process and our best attempts at treatment for the condition. Thank you again for allowing us to be part of your patient's care. Please don't hesitate to contact me if you have any further questions. Follow-up: Post op Patient Education: (Informational booklet, instructions, etc) given at today's appointment: Yes .ED:Patient Education: Y Plan at next visit: pre op Medications Reviewed: YES Attestation: In our visit today Ms. Nguyen and I have had a chance to go over my understanding of the patient's current condition, the natural course history without intervention and various interventional options. Questions were invited and answered, and the patient wishes to proceed as outlined above. I will be sure to keep you updated afterMs. Nguyen returns here for further follow-up. Thank you again for your referral. Please do not hesitate to contact me if you have any further questions. Signed and authenticated by: Gian Hernandez [facility] [address] [place] [address] This message is confidential, intended only for the named recipient(s) and may c ontain information that is privileged or exempt from disclosure under applicable law. If you are not the intended recipient(s), you are notified that the dissemination, distribution or copying of this information is strictly prohibited. If you received this message in error, please notify the sender then delete this message. CC: Ernie Minaya M.D. Past Medical History Past Medical History: Asthma Additional Past Medical History / Comment(s): Lumbar herniation/pain, misalignment of bilateral knees History of Any Multi-Drug Resistant Organisms: None Reported Past Surgical History: No Surgical Hx Reported Additional Past Surgical History / Comment(s): Teeth extractions for bracing, pain clinic procedure Past Anesthesia/Blood Transfusion Reactions: Motion Sickness Additional Past Anesthesia/Blood Transfusion Reaction / Comment(s): Pt has never received blood Smoking Status: Never smoker - Past Family History Mother Family Medical History: Diabetes Mellitus Additional Family Medical History / Comment(s): Maternal grandmother DVTs Father History Unknown: Yes Medications and Allergies Home Medications Medication Instructions Recorded Confirmed Type Montelukast [Singulair] 10 mg PO QAM 11/06/14 02/13/23 History FLUoxetine HCL 40 mg PO QAM 02/12/22 02/13/23 History Loratadine [Claritin] 10 mg PO QAM 02/12/22 02/13/23 History Gabapentin 300 mg PO BID PRN 01/15/23 02/13/23 History Naproxen 250 mg PO QAM PRN 02/13/23 02/13/23 History Allergies Allergy/AdvReac Type Severity Reaction Status Date / Time adhesive AdvReac Rash/Hives Verified 02/13/23 15:31 adhesive tape AdvReac Rash/Hives Verified 02/13/23 15:31 clarithromycin [From Biaxin] AdvReac Nausea & Verified 02/13/23 15:17 Vomiting Physical Examination Osteopathic Statement: *. No significant issues noted on an osteopathic structural exam other than those noted in the History and Physical/Consult.
[2023-02-17] MEDS: LACTATED RINGERS 1,000 ML IV SCH (07:01)
[2023-02-17] MEDS ORDERED: SCOPOLAMINE 1 MG/72 HR PATCH TRANSDERM ONE (07:05)
[2023-02-17] MEDS ORDERED: MIDAZOLAM 2 MG/2 ML VIAL ONE (07:25)
[2023-02-17] MEDS ORDERED: SUCCINYLCHOLINE CHLORIDE 200 MG/10 ML VIAL IV ONE (07:25)
[2023-02-17] MEDS ORDERED: HYDROmorphone (PF) 1 MG/ML ONE (07:25)
[2023-02-17] MEDS ORDERED: TRANEXAMIC 1,000 MG/100ML-NACL PREMIX BAG ONE (07:25)
[2023-02-17] MEDS ORDERED: NEOSTIGMINE 1 MG/ML 10 ML VIAL ONE (07:25)
[2023-02-17] MEDS ORDERED: fentaNYL (PF) 50 MCG/ML 2 ML AMP ONE (07:25)
[2023-02-17] MEDS ORDERED: KETAMINE 10 MG/ML 20 ML VIAL ONE (07:25)
[2023-02-17] MEDS ORDERED: PROPOFOL 10 MG/ML 20 ML VIAL IV ONE (07:25)
[2023-02-17] MEDS ORDERED: ROCURONIUM 10 MG/ML (5 ML VIAL) IV ONE (07:25)
[2023-02-17] MEDS ORDERED: PHENYLEPHRINE-0.9% NACL SYG 1,000 MCG/10 ML SYRINGE ONE (07:25)
[2023-02-17] MEDS ORDERED: LIDOCAINE 2% INJ 20 MG/ML (2 ML VIAL) ONE (07:25)
[2023-02-17] MEDS ORDERED: GLYCOPYRROLATE 0.2 MG/ML 2 ML VIAL ONE (07:25)
[2023-02-17] MEDS ORDERED: THROMBIN (BOVINE) 5,000 UNIT VIAL TOPICAL ONE (08:19)
[2023-02-17] MEDS ORDERED: GELATIN SPONGE,ABSORB (LARGE) 1 EACH SPONGE TOPICAL ONE (08:23)
[2023-02-17] MEDS ORDERED: methylPREDNISolone ACETATE 40 MG/ML 1 ML VIAL MISCELLANE ONE (08:39)
[2023-02-17] MEDS ORDERED: LIDOCAINE 2%-EPI 1:100,000 20 ML VIAL SQ ONE ×2 (08:50)
[2023-02-17] MEDS ORDERED: BUPIVACAINE (PF) 0.25% 30 ML VIAL SQ ONE ×2 (08:51)
[2023-02-17] MEDS ORDERED: VANCOMYCIN 1,000 MG VIAL MISCELLANE ONE (08:52)
[2023-02-17] MEDS ORDERED: ceFAZolin 3,000 MG in SODIUM CHLORIDE 0.9% IRRIGATIO 3,000 ML IRRIGATION ONE (08:54)
[2023-02-17] MEDS ORDERED: GENTAMICIN 80 MG in SODIUM CHLORIDE 0.9% IRRIGATIO 3,000 ML IRRIGATION ONE (08:54)
--- NOTE | 2023-02-17 09:17 | FL ---
Intraoperative/procedural fluoroscopic services were provided. Total fluoroscopy time is 6 seconds wi th a total of 4 submitted images to PACS. Please see the operative/procedural note for further detail s. DAP: 1.4565 Gycm2
--- NOTE | 2023-02-17 09:19 | P.OP ---
Date of Procedure: 02/17/23 Preoperative Diagnosis: 1. L5-S1 HNP 2. RLE radiculopathy 3. RLE weakness 4. LBP Postoperative Diagnosis: 1. L5-S1 HNP 2. RLE radiculopathy 3. RLE weakness 4. LBP Procedure(s) Performed: 1. L5-S1 hemilaminotomy, partial medial facetectomy and foraminotomy with microdiscectomy (88210) Use of IO microscope Implants: NA Anesthesia: GETA Surgeon: Gian Florence Line Crewman #1: Oren Galarza (Was present and assisted with all aspecst of the case from positioining to closure. ) Estimated Blood Loss (ml): 50 IV fluids (ml): 300 Urine output (ml): 0 Pathology: none sent Condition: stable Disposition: PACU Indications for Procedure: Ms. Nguyen is presenting for evaluation of low back pain. It was my pleasure to have seen and examined Ms. Nguyen. Patient states lower back pain ongoing for several years. The patient notes low back pain across the buttock area that radiates down her right leg. She notes a throbbing/stabbing pain increased with prolonged standing, sitting and walking. Since the last visit the patient has had an increase in tingling in the feet and an overall increase in pain. In our visit today we have had a chance to go over subjective complaints, physical examination findings and treatments including the natural course history without intervention and various interventional options. The patients imaging demonstrates: XRay taken on 10/22/22 of Lumbar Spine and pelvis at [facility] : Multiple Views of the lumbar spine obtained and reviewed and demonstrate normal sagittal as well as coronal alignment. Disc heights and vertebral body heights are maintained. There is no fracture or dislocation noted. No listhesis noted. AP pelvis demonstrates congruent level pelvis no fracture or dislocation MRI scan from 09/19/2022of Lumbar Spine: taken at [facility]: this is reviewed and demonstrates disc herniation at L5-S1 on the right-hand side with right S1 nerve root encroachment. There is moderate to severe foraminal stenosis related to this. There is no encroachment on the L5 nerve root. There are degenerative changes associated with this as well. At L4 5 there is disc desiccation noted with an annular tear but no large disc herniation or stenosing lesion. Overall alignment is maintained No fracture lesions noted On physical exam, Ms. Nguyen demonstrates: :LE radiculopathy R/L. LE weakness. Pain with motion, SLR positive and contralateral SLR positive. NO bowel bladder sx. I have explained to the patient that as their condition progresses it will cause further neurological deficits and eventual paralysis. Based on the patients imaging, physical exam, and the rapid progression and disabling nature of their symptoms, at this time I recommend surgery in the form of a:Lumbar L5-S1 Right Microdiscectomy. I discussed the risk and benefits of this procedure at length with Ms. Nguyen. The patient and mother agreed to considered pursuing the procedure abovementioned. Prior to surgery, she should follow up with her PCP (Cardio, ID, IM etc) for clearance. Questions were invited and answered, and the patient wishes to proceed as outlined below. Currently, I am recommendin.Lumbar L5-S1 Right Microdiscectomy Description of Procedure: L5-S1 Right Microdisc The patient was seen and examined in the preoperative area. All preoperative protocols were followed. Informed consent was obtained, risks and benefits of the procedure were discussed at length. Risks including bleeding infection damage to the surrounding tissue and risk of re-operation were discussed with the patient. Risk of anesthesia up to and including was discussed with the patient. These are outlined in the risk review. They were willing to accept these risks and all the risks of surgery. The patient was given a weight-based dose of antibiotics in the form of 2 g Ancef. The patient was seen and evaluated by the anesthesia team who deemed them fit for surgery. The site was marked, the patient was willing to proceed with the procedure. The patient was transferred to the operative suite by the Department of anesthesia. They were then drifted off to sleep by the department anesthesia and GETA was performed. The patient tolerated this well. Mcdonald catheter was placed by nursing staff, a-traumatically. Once confirmation of lines and ventilation the patient was transferred to a prone Jasen table very carefully. All bony prominences including wrists, elbows, axilla, chest, hips, and thighs, and feet were padded very well. Special attention was paid to the genitalia, and these were padded accordingly. SCDs were placed on bilateral lower extremities and were connected. Arms were well padded and placed on arm boards up and out in the 90/90 position. Once in position, again we confirmed good ventilation capabilities and that lines were running appropriately. The patients Lumbar spine was then exposed. 1010s were placed outlining the incision site. Standard alcohol was used to clean the incision site and allowed to dry. C-arm was used to needle localize the pedicles at L5-S1 and bio-sergio the patient and confirm level for incision which was marked with a skin marker. Operative briefing was performed with all teams and everyone in agreement to proceed. The patient was then prepped and draped in a normal sterile fashion. Timeout was then performed, and all parties agreed with the procedure to be performed. Skin incision was made over the previously marked area and dissection taken down to the deep facia which was split just off midline for a midline sparing approach. Subperiosteal dissection was then taken down the lamina over the facet joints and identifying the pars at L5. [place] 4 was placed at the level of the pars of L5 and a lateral image taken to confirm operative level. Retractors were then placed. Microscope was then brought in for visualization. Anthony-laminotomy, partial medial facetectomy and foraminotomy were performed at L5-S1 using high speed tom and Kerrison rongure. The ligamentum flavum was removed with Kerrison and curette. Dura and roots protected. The disc space was identified along with the herniation. 11 blade was used to make small annulotomy and micro-pituitary used to remove loose disc fragments. Once fragments were removed, down biting curette was used to push any medial fragments down and towards the annulotomy and decompress centrally. The disc space was irrigated, and any loose fragments removed again. Bipolar was used for hemostasis and scarring of the annulotomy. The area was irrigated, and meticulous hemostasis performed. The bed was inspected, and all roots have ample room and are decompressed along with the dura. There were no injuries. Retractors were then removed. The wound was copiously irrigated with NSS. The deep fascia was closed with 0 PDS. Deep sub-q with 0 Vicryl and superficial with 2-0 Vicryl. Subcuticular was closed with 3-0 stratafix. The wound edges approximated well. The wound was then cleaned, and glue tape placed on the skin and allowed to dry. It was then Covered with an Opifoam dressing. The patient was then transferred off the table back to their hospital bed a- traumatically. They were extubated by the department of anesthesia. They were then transferred to PACU in stable condition having tolerated the procedure with no complications.
[2023-02-17] MEDS: HYDROmorphone 0.5 MG/0.5 ML SYRINGE IVP PRN ×3 (09:46→10:24)
[2023-02-17] MEDS ORDERED: LACTATED RINGERS 1,000 ML IV ONE ×2 (09:46→12:36)
[2023-02-17] MEDS ORDERED: ONDANSETRON 4 MG/2 ML VIAL IVP ONE (09:54)
[2023-02-17] MEDS ORDERED: HYDROcodone/APAP 10-325MG 1 EACH TAB ONE (11:07)
[2023-02-17] MEDS ORDERED: HYDROcodone/APAP 10-325MG 1 EACH TAB PO ONE (11:14)
[2023-02-17] MEDS ORDERED: ONDANSETRON ODT 4 MG TAB PO ONE (11:58)
[2023-02-17 12:46] VITALS: RESP 16; TEMP 98.6
[2023-02-17 13:45] VITALS: BP 119/63; PULSE 120
== END 2023-02-17 13:50 | disposition home or self-care (01) ==
LOC: OR 06:07
PROVIDERS: ATTEND Orthopaedic Surgery
DX: M51.16 Intervertebral disc disorders with radiculopathy, lumbar region (principal); M99.63 Osseous and subluxation stenosis of intervertebral foramina of lumbar region; J45.909 Unspecified asthma, uncomplicated; F32.A Depression, unspecified; F10.20 Alcohol dependence, uncomplicated; Z79.1 Long term (current) use of non-steroidal anti-inflammatories (NSAID); Z79.52 Long term (current) use of systemic steroids; Z79.899 Other long term (current) drug therapy; Z91.048 Other nonmedicinal substance allergy status; Z88.1 Allergy status to other antibiotic agents
CPT/HCPCS: 63030; 81025; 86900; 86901; 86850; 72100; J2250; J3370; J0330; J1030; J1580; J1100; J2710; J0690 ×2; J2405; J3010; J1170 ×2; J2370; J2704; J2001